=== PATIENT | female | born 1970 | race Caucasian/White ===

== ENCOUNTER → 2016-07-01 | Outpatient (CLI) | payer MEDICARE ==
--- OUTSIDE RECORDS SUMMARY | 2016-07-01 10:50 | XMS REPORT | Continuity of Care Document ---
Author Author [facility] Organization [facility] Address Unknown Phone Unavailable Care Team Providers Care Neuropsychiatrist Name Role Phone Isa Jean-Baptiste PCP [phone] Source Comments Some departments are not documenting in the electronic medical record. If you do not see the information that you expected, contact Release of Information in the Health Information Management department at [phone] for further assistance in locating additional records.[facility] Active Allergies and Adverse Reactions Not on File Current Medications Not on file Active Problems Not on file Social History Tobacco Use Types Packs/Day Years Used Date Never Assessed Plan of Care Health Maintenance Due Date Last Done Comments Physical (Comprehensive) 12/03/1975 Exam Pertussis Vaccine 12/03/1979 Tetanus Vaccine 1985 Cervical Cancer Screening 1989 Breast Cancer Screening 2008 Influenza Vaccine 12/28/2015 Results from Last 3 Months Not on file
--- NOTE | 2016-07-01 13:33 | Diagnostic Imaging Report ---
INDICATION: Fall 2 weeks ago with left hip pain and swelling. COMPARISON: None. DISCUSSION: Limited targeted sonographic evaluation of the soft tissues overlying the left hip were performed. There is no large suspicious hematoma or other soft tissue mass identified. There are punctate 5 mm foci of fluid noted within the subcutaneous fat which is of doubtful clinical significance though could represent changes from previous blunt trauma. IMPRESSION: 1. No hematoma or drainable fluid identified within the soft tissues overlying the left hip. Dictated by: Dictated on workstation # [id number]
== END ==
LOC: RAD 10:46
PROVIDERS: ATTEND Nurse Practitioner Family
DX: R10.84 Generalized abdominal pain (principal)
CPT/HCPCS: 76536

== ENCOUNTER → 2017-03-22 | Outpatient (CLI) | payer MEDICARE | LOC: HH 14:28 | PROVIDERS: ATTEND Internal Medicine Infectious Disease | DX: M86.172 Other acute osteomyelitis, left ankle and foot (principal); B95.62 Methicillin resistant Staphylococcus aureus infection as the cause of diseases classified elsewhere | CPT/HCPCS: 80202 ==

== ENCOUNTER → 2017-03-24 | Outpatient (CLI) | payer MEDICARE ==
[2017-03-24 17:05] LABS: BASOPHILS % (AUTO) 1 % (0-10); EOSINOPHILS # (AUTO) 0.2 10^3/uL (0.0-0.3); EOSINOPHILS % (AUTO) 3 % (0-10); LYMPHOCYTES # (AUTO) 1.2 X 10^3 (1.0-4.0); LYMPHOCYTES % (AUTO) 23 % (12-44); MEAN CORPUSCULAR HEMOGLOBIN 30 PG (25-34); MEAN CORPUSCULAR HGB CONC 31 G/DL (32-36); MEAN CORPUSCULAR VOLUME 96 FL (80-99); MEAN PLATELET VOLUME 11.8 FL (7.4-10.4); MONOCYTES # (AUTO) 0.6 X 10^3 (0.0-1.0); MONOCYTES % (AUTO) 10 % (0-12); NEUTROPHILS # (AUTO) 3.5 X 10^3 (1.8-7.8); NEUTROPHILS % (AUTO) 64 % (42-75); PLATELET COUNT 150 10^3/uL (130-400); RED BLOOD COUNT 3.07 10^6/uL (4.35-5.85); RED CELL DISTRIBUTION WIDTH 14.9 % (10.0-14.5); WHITE BLOOD COUNT 5.5 10^3/uL (4.3-11.0)
[2017-03-24 17:18] LABS: ALBUMIN 3.2 GM/DL (3.2-4.5); BILIRUBIN,TOTAL 0.7 MG/DL (0.1-1.0); CALCIUM 8.9 MG/DL (8.5-10.1); CREATININE SERUM 5.28 MG/DL (0.60-1.30); POTASSIUM 3.3 MMOL/L (3.6-5.0); TOTAL PROTEIN 5.9 GM/DL (6.4-8.2)
[2017-03-24 17:35] LABS: ERYTHROCYTE SEDIMENTATION RATE 42 MM/HR (0-20)
== END ==
LOC: HH 16:52
PROVIDERS: ATTEND Internal Medicine Infectious Disease
DX: M86.172 Other acute osteomyelitis, left ankle and foot (principal); B95.62 Methicillin resistant Staphylococcus aureus infection as the cause of diseases classified elsewhere; B96.5 Pseudomonas (aeruginosa) (mallei) (pseudomallei) as the cause of diseases classified elsewhere
CPT/HCPCS: 80053; 85025; 85652

== ENCOUNTER → 2017-03-26 | Outpatient (CLI) | payer MEDICARE ==
--- NOTE | 2017-03-26 13:17 | Diagnostic Imaging Report ---
Renal ultrasound. INDICATION: Right flank pain. FINDINGS: The right kidney is 11.9 cm and the left kidney is 11.7 cm in length. There is no hydronephrosis or focal lesion. The urinary bladder appears unremarkable. IMPRESSION: Unremarkable exam. Dictated by: Dictated on workstation # [id number]
== END ==
LOC: RAD 09:47
PROVIDERS: ATTEND Nurse Practitioner Family
DX: R10.9 Unspecified abdominal pain (principal)
CPT/HCPCS: 76770

== ENCOUNTER → 2017-05-14 | Outpatient (CLI) | payer MEDICARE | LOC: WOUNDCARE 10:22 | PROVIDERS: ATTEND Surgery | DX: L97.512 Non-pressure chronic ulcer of other part of right foot with fat layer exposed (principal); L97.522 Non-pressure chronic ulcer of other part of left foot with fat layer exposed; L97.422 Non-pressure chronic ulcer of left heel and midfoot with fat layer exposed; L98.492 Non-pressure chronic ulcer of skin of other sites with fat layer exposed; I70.235 Atherosclerosis of native arteries of right leg with ulceration of other part of foot; I70.245 Atherosclerosis of native arteries of left leg with ulceration of other part of foot | CPT/HCPCS: 99215 ==

== ENCOUNTER → 2017-05-19 | Outpatient (CLI) | payer MEDICARE | LOC: WOUNDCARE 13:15 | PROVIDERS: ATTEND Surgery | DX: E11.621 Type 2 diabetes mellitus with foot ulcer (principal); E11.622 Type 2 diabetes mellitus with other skin ulcer; L97.512 Non-pressure chronic ulcer of other part of right foot with fat layer exposed; L97.522 Non-pressure chronic ulcer of other part of left foot with fat layer exposed; L97.422 Non-pressure chronic ulcer of left heel and midfoot with fat layer exposed; L98.492 Non-pressure chronic ulcer of skin of other sites with fat layer exposed; I70.235 Atherosclerosis of native arteries of right leg with ulceration of other part of foot; I70.245 Atherosclerosis of native arteries of left leg with ulceration of other part of foot; L03.116 Cellulitis of left lower limb; T82.898A Other specified complication of vascular prosthetic devices, implants and grafts, initial encounter | CPT/HCPCS: 99215 ==

== ENCOUNTER → 2017-06-03 | Outpatient (CLI) | payer MEDICARE ==
[2017-06-03 16:51] LABS: BASOPHILS % (AUTO) 0 % (0-10); EOSINOPHILS # (AUTO) 0.1 10^3/uL (0.0-0.3); EOSINOPHILS % (AUTO) 2 % (0-10); HEMATOCRIT 33 % (35-52); HEMOGLOBIN 10.8 G/DL (11.5-16.0); LYMPHOCYTES % (AUTO) 23 % (12-44); MEAN CORPUSCULAR HEMOGLOBIN 30 PG (25-34); MEAN CORPUSCULAR HGB CONC 32 G/DL (32-36); MEAN CORPUSCULAR VOLUME 91 FL (80-99); MEAN PLATELET VOLUME 10.7 FL (7.4-10.4); MONOCYTES # (AUTO) 0.5 X 10^3 (0.0-1.0); MONOCYTES % (AUTO) 11 % (0-12); NEUTROPHILS # (AUTO) 2.9 X 10^3 (1.8-7.8); NEUTROPHILS % (AUTO) 65 % (42-75); PLATELET COUNT 185 10^3/uL (130-400); RED BLOOD COUNT 3.65 10^6/uL (4.35-5.85); RED CELL DISTRIBUTION WIDTH 15.6 % (10.0-14.5); WHITE BLOOD COUNT 4.5 10^3/uL (4.3-11.0)
[2017-06-03 17:12] LABS: ERYTHROCYTE SEDIMENTATION RATE 38 MM/HR (0-20)
[2017-06-03 17:15] LABS: ALANINE AMINOTRANSFERASE < 6 U/L (0-55); ALBUMIN 3.2 GM/DL (3.2-4.5); ALKALINE PHOSPHATASE 65 U/L (40-136); BILIRUBIN,TOTAL 0.5 MG/DL (0.1-1.0); BUN/CREATININE RATIO 5; CALCIUM 8.4 MG/DL (8.5-10.1); CARBON DIOXIDE 34 MMOL/L (21-32); CHLORIDE 93 MMOL/L (98-107); CREATININE SERUM 2.99 MG/DL (0.60-1.30); GFR ESTIMATED 17; GLUCOSE 191 MG/DL (70-105); POTASSIUM 2.8 MMOL/L (3.6-5.0); SODIUM 140 MMOL/L (135-145); TOTAL PROTEIN 5.7 GM/DL (6.4-8.2)
== END ==
LOC: HH 07:00
PROVIDERS: ATTEND Internal Medicine Infectious Disease
DX: I96 Gangrene, not elsewhere classified (principal); M86.9 Osteomyelitis, unspecified
CPT/HCPCS: 80053; 85025; 85652

== ENCOUNTER → 2017-06-09 | Outpatient (CLI) | payer MEDICARE | LOC: WOUNDCARE 09:27 | PROVIDERS: ATTEND Surgery | DX: E11.621 Type 2 diabetes mellitus with foot ulcer (principal); L97.422 Non-pressure chronic ulcer of left heel and midfoot with fat layer exposed; E11.622 Type 2 diabetes mellitus with other skin ulcer; L98.492 Non-pressure chronic ulcer of skin of other sites with fat layer exposed; I70.245 Atherosclerosis of native arteries of left leg with ulceration of other part of foot; T82.898A Other specified complication of vascular prosthetic devices, implants and grafts, initial encounter | CPT/HCPCS: 99213 ==

== ENCOUNTER → 2017-06-23 | Outpatient (CLI) | payer MEDICARE | LOC: WOUNDCARE 09:24 | PROVIDERS: ATTEND Surgery | DX: E11.621 Type 2 diabetes mellitus with foot ulcer (principal); L97.422 Non-pressure chronic ulcer of left heel and midfoot with fat layer exposed; E11.622 Type 2 diabetes mellitus with other skin ulcer; L98.492 Non-pressure chronic ulcer of skin of other sites with fat layer exposed; I70.245 Atherosclerosis of native arteries of left leg with ulceration of other part of foot; T82.898A Other specified complication of vascular prosthetic devices, implants and grafts, initial encounter | CPT/HCPCS: 99213 ==

== ENCOUNTER → 2017-07-21 | Outpatient (CLI) | payer MEDICARE | LOC: WOUNDCARE 11:10 | PROVIDERS: ATTEND Surgery | DX: E11.621 Type 2 diabetes mellitus with foot ulcer (principal); I70.235 Atherosclerosis of native arteries of right leg with ulceration of other part of foot; L97.422 Non-pressure chronic ulcer of left heel and midfoot with fat layer exposed; L97.512 Non-pressure chronic ulcer of other part of right foot with fat layer exposed; E11.622 Type 2 diabetes mellitus with other skin ulcer; I70.245 Atherosclerosis of native arteries of left leg with ulceration of other part of foot; L98.492 Non-pressure chronic ulcer of skin of other sites with fat layer exposed; T82.898A Other specified complication of vascular prosthetic devices, implants and grafts, initial encounter | CPT/HCPCS: 99213 ==

== ENCOUNTER → 2017-08-11 | Outpatient (CLI) | payer MEDICARE | LOC: WOUNDCARE 15:27 | PROVIDERS: ATTEND Surgery | DX: E11.621 Type 2 diabetes mellitus with foot ulcer (principal); L97.512 Non-pressure chronic ulcer of other part of right foot with fat layer exposed; I70.235 Atherosclerosis of native arteries of right leg with ulceration of other part of foot; L98.492 Non-pressure chronic ulcer of skin of other sites with fat layer exposed; T82.898A Other specified complication of vascular prosthetic devices, implants and grafts, initial encounter | CPT/HCPCS: 99212 ==